=== PATIENT | female | born 1970 | race Caucasian/White ===

== ENCOUNTER 2017-02-06 16:42 | Inpatient (IN) | payer OTHER ==
[~2017-02-06 16:42] MED LIST: NACL 0.9% 1000 ML 1,000 ML IV ONE
[2017-02-06] MEDS ORDERED: NACL 0.9% 1000 ML 1,000 ML IV ONE ×2 (21:49→23:15)
--- NOTE | 2017-02-06 21:54 | Emergency Department Report ---
ED Shortness of Breath HPI - General Chief Complaint: Dyspnea/Respdistress Stated Complaint: SINUSITIS/LIAM Time Seen by Provider: 02/06/17 21:40 Source: patient Mode of arrival: Ambulatory Limitations: No Limitations - History of Present Illness Initial Comments: 46 yo female with no significant past medical history presents to the hospital with shortness breath, cough, and syncope. Patient is visiting from [place] and arrived to the [place] area one week ago. Yesterday she developed a dry cough that worsened today. Patient also has had shortness of breath since this afternoon. While in the bathroom here in the ED patient had a syncopal episode. This episode was associated with lightheadedness and sweating. Patient denies chest pain, fever, headache, nausea, vomiting, diarrhea, melena, hematochezia, or heavy vaginal bleeding. LMP 1 month ago. Patient denies calf tenderness or edema. Patient is noted to be tachycardic with initial pulse rate 155 - Related Data Home Medications Medication Instructions Recorded Confirmed Last Taken No Known Home Medications [No 02/06/17 02/06/17 Unknown Reported Home Medications] Allergies Allergy/AdvReac Type Severity Reaction Status Date / Time No Known Allergies Allergy Unverified 02/06/17 16:44 ED Review of Systems ROS: Stated complaint: SINUSITIS/LIAM Other details as noted in HPI Comment: All other systems reviewed and negative Other: Constitutional: No fevers chills Eyes: No eye pain visual changes ENT: No ear pain or throat pain Neck: Denies pain Respiratory: as per hpi Cardiovascular: as per hpi GI: Denies abdominal pain, nausea, vomiting : Denies dysuria Musculoskeletal: Denies back pain Skin: Denies rash, lesions, erythema Neurologic: Denies headache, numbness, weakness Psychiatric: Denies suicidal ideation, hallucinations ED Past Medical Hx - Past Medical History Previous Medical History?: No - Surgical History Past Surgical History?: No - Social History Smoking Status: Never Smoker Substance Use Type: None - Medications Home Medications: Home Medications Medication Instructions Recorded Confirmed Last Taken Type No Known Home Medications [No 02/06/17 02/06/17 Unknown History Reported Home Medications] ED Physical Exam - General Limitations: No Limitations - Other Other exam information: General: No limitations, patient is alert in no acute distress Head exam: Atraumatic, normocephalic Eyes exam: Normal appearance, pale conjunctiva ENT: Moist mucous membrane, normal oropharynx Neck exam: Normal inspection, full range of motion, no meningismus nontender Respiratory exam: Mild tachypnea, clear to auscultation Cardiovascular: Tachycardic regular rhythm Abdomen: Soft, nondistended, and nontender, with normal bowel sounds, no rebound, or guarding. Firm suprapubic area stomach suspect fibroid Extremity: Full range of motion normal inspection no deformity, no calf tenderness or edema Back: Normal Inspection, full range of motion, no tenderness Neurologic: Alert, oriented x3, cranial nerves intact, no motor or sensory deficit Psychiatric: normal affect, normal mood Skin: Warm, dry, intact ED Course Vital Signs 02/06/17 02/06/17 02/06/17 16:44 21:27 21:43 Temperature 98.5 F 99.2 F Pulse Rate 155 H 143 H 146 H Respiratory 22 22 30 H Rate Blood Pressure 114/87 Blood Pressure 104/71 [Right] O2 Sat by Pulse 93 94 Oximetry 02/06/17 02/06/17 02/06/17 21:45 22:01 22:15 Temperature Pulse Rate 148 H 137 H 147 H Respiratory 35 H 35 H 31 H Rate Blood Pressure 117/73 117/73 117/73 Blood Pressure [Right] O2 Sat by Pulse Oximetry 02/06/17 02/06/17 02/06/17 22:31 22:45 23:01 Temperature Pulse Rate 122 H 138 H 38 L Respiratory 44 H 13 18 Rate Blood Pressure 117/73 117/73 171/138 Blood Pressure [Right] O2 Sat by Pulse Oximetry 02/06/17 02/06/17 02/06/17 23:09 23:15 23:31 Temperature Pulse Rate 38 L 120 H 148 H Respiratory 14 102 H Rate Blood Pressure 171/138 142/87 158/127 Blood Pressure [Right] O2 Sat by Pulse Oximetry 02/06/17 02/07/17 02/07/17 23:45 00:00 00:15 Temperature Pulse Rate 67 97 H 101 H Respiratory 21 24 26 H Rate Blood Pressure 62/39 73/40 76/49 Blood Pressure [Right] O2 Sat by Pulse 100 Oximetry 02/07/17 02/07/17 02/07/17 00:30 00:45 01:00 Temperature Pulse Rate 105 H 110 H 112 H Respiratory 49 H 45 H 57 H Rate Blood Pressure 109/67 125/88 139/87 Blood Pressure [Right] O2 Sat by Pulse Oximetry 02/07/17 02/07/17 02/07/17 01:15 01:30 01:45 Temperature Pulse Rate 113 H 112 H 114 H Respiratory 60 H 63 H 34 H Rate Blood Pressure 137/88 144/67 134/80 Blood Pressure [Right] O2 Sat by Pulse Oximetry 02/07/17 02/07/17 02/07/17 02:00 02:51 03:00 Temperature Pulse Rate 112 H 112 H 112 H Respiratory 33 H 34 H 31 H Rate Blood Pressure 127/97 133/85 103/44 Blood Pressure [Right] O2 Sat by Pulse Oximetry 02/07/17 03:15 Temperature Pulse Rate 110 H Respiratory 31 H Rate Blood Pressure 75/39 Blood Pressure [Right] O2 Sat by Pulse Oximetry - Reevaluation(s) Reevaluation #1: 02/06/17 21:53 1 L normal saline bolus ordered Reevaluation #2: 02/07/17 Patient complained of worsening shortness of breath and repeat EKG at 22:14. This now shows persistent sinus tachycardia rate 145 with S1, Q3, T3 findings and right ventricular delay new compared to previous at 22:35 I went to room to reevaluate pt. she was cool and clammy feeling. Noticeably tachypnic. Patient states that she felt weak. Patient's saturation on supplemental oxygen remained above 90. Patient's heart rate began to decrease to less than 100. Patient became unresponsive twitching and staring episode followed by agonal respirations that progressed to apnea while I was at the bedside. Bag mask ventilations with supplemental oxygen initiated immediately. Patient continued to bradycardia down and became pulseless. Chest compressions were initiated as well as administration of epinephrine. At 22:43 first epinephrine was administered. Patient received a total of 4 epinephrine during resuscitation efforts. Patient was intubated during this time. Initial intubation was in the esophagus. Bougie was used to intubate the trachea and 7.5 ET tube placed with Seldinger technique. Positive audible breath sounds bilaterally with saturation in the 90s. Labs resulted during resuscitation efforts and show an elevation in d-dimer greater than 10,000. Decision to TPA the patient was made. TPA bolus of 10 mg was initiated at 23: 09 followed by 90 mg drip over 2 hours that was initiated at 23:10. EKG was repeated at 23:[address] elevation anteriorly, inferior Q waves, and lateral ST depressions. This was discussed with stemi french teacher Dr. Nicholas Stuart stoneworking belt sander. He agrees that symptoms likely secondary to PE and patient not a candidate for emergent catheterization at this time. Patient became pulseless again after initiation of TPA and had several episodes of pulseless bradycardia requiring multiple doses of epi with one episode of V. tach requiring defibrillation at 200 J. By 23:53 patient continued to have a palpable pulse with a narrow complex rhythm. Levophed was initiated for blood pressure support since systolic blood pressure dropped to the 70s and 80s. Case was D/w Dr Harmon stoneworking belt sander vascular regarding EKos and states if post TPA imaging reveals persistent high clot burden then ekos could be performed otherwise systemic TPA might be effective enough to dissolve the clot. Repeat EKG was performed at 12:31 AM and shows improvement in the ST elevations. Some persistent right bundle-branch block but the lateral ST depressions have improved. Also findings of S1, Q 3, and T3 have improved. 12:48 Patient is currently on Levophed at 15 mics with a pressure 125/88 and heart rate of 109 Pt also received 3L NS IV bolus. No urine output from melo Pt's friend Wil Pearce informed of patient's status and at the bedside at 12: 45. Apparently she is a Facebook friend of the patient and they just met for the first time when she came to [facility] last week. She states that she has tried to contact patient's daughter lives in [place] via what's michael. She has not yet heard a response. She also states that patient's plan was to visit a friend in [place] and she was awaiting them to send her either a plane or bus ticket. This finding does not know the family's name or have contact information for the family and [place]. 02/07/17 00:53 Reevaluation #3: 02/07/17 01:06 case d/w Hospitalist Dr Field. Will not admit pt until Ct angio is performed. Test ordered - Consultations Consultation #1: 02/06/17 24:14 EKG was repeated at 23:[address] elevation anteriorly, inferior Q waves, and lateral ST depressions. This was discussed with stemi french teacher Dr. Nicholas Stuart stoneworking belt sander. He agrees that symptoms likely secondary to PE and patient not a candidate for emergent catheterization at this time. Consultation #2: 02/07/17 00:04 Case was D/w Dr Harmon stoneworking belt sander vascular regarding EKos and states if post TPA imaging reveals persistent high clot burden the ekos could be performed otherwise systemic TPA might be effective enough to dissolve the clot. - Intubation Time Out Performed: Yes Sedative: none Laryngoscope: June Size: 4 Assist Device Used: Bougie ET Tube Size: 7 Tube Secured Depth (cm): 22 Tube Secured Location: lips Tube Placement Confirmation: visualized tube passing t, equal breath sounds bilat, no breath sounds over epi, confirmation by capnometr Patient Tolerated Procedure: well Intubation Complications: other (espohageal intubation initially. Immediately recognized. ET tube removed and reattempted using bougie with successful intubation) ED Medical Decision Making - Lab Data Result diagrams: 02/07/17 01:26 02/06/17 21:54 Lab Results 02/06/17 02/06/17 02/06/17 Range/Units 21:54 21:54 21:54 WBC 14.1 H (4.5-11.0) K/mm3 RBC 4.68 (3.65-5.03) M/mm3 Hgb 9.7 L (10.1-14.3) gm/dl Hct 32.7 (30.3-42.9) % MCV 70 L (79-97) fl MCH 21 L (28-32) pg MCHC 30 (30-34) % RDW 18.7 H (13.2-15.2) % PT (12.2-14.9) Sec. INR (0.87-1.13) APTT (24.2-36.6) Sec. D-Dimer (0-234) ng/mlDDU Sodium 136 L (137-145) mmol/L Potassium 3.8 (3.6-5.0) mmol/L Chloride 98.3 (98-107) mmol/L Carbon Dioxide 14 L (22-30) mmol/L Anion Gap 28 mmol/L BUN 11 (7-17) mg/dL Creatinine 1.1 (0.7-1.2) mg/dL Estimated GFR 53 ml/min BUN/Creatinine Ratio 10 % Glucose 193 H (65-100) mg/dL Lactic Acid 4.70 H* (0.7-2.0) mmol/L Calcium 8.8 (8.4-10.2) mg/dL Troponin T 0.057 H (0.00-0.029) ng/mL Triglycerides 121 (2-149) mg/dL Cholesterol 179 (50-199) mg/dL LDL Cholesterol Direct 94 (50-130) mg/dL HDL Cholesterol 61 H (40-59) mg/dL Cholesterol/HDL Ratio 2.93 % TSH (0.270-4.200) mlU/mL Free T4 (0.76-1.46) ng/dL HCG, Qual (Negative) Blood Type 02/06/17 02/06/17 02/06/17 Range/Units 21:54 21:54 21:54 WBC (4.5-11.0) K/mm3 RBC (3.65-5.03) M/mm3 Hgb (10.1-14.3) gm/dl Hct (30.3-42.9) % MCV (79-97) fl MCH (28-32) pg MCHC (30-34) % RDW (13.2-15.2) % PT (12.2-14.9) Sec. INR (0.87-1.13) APTT (24.2-36.6) Sec. D-Dimer > 30609 H (0-234) ng/mlDDU Sodium (137-145) mmol/L Potassium (3.6-5.0) mmol/L Chloride (98-107) mmol/L Carbon Dioxide (22-30) mmol/L Anion Gap mmol/L BUN (7-17) mg/dL Creatinine (0.7-1.2) mg/dL Estimated GFR ml/min BUN/Creatinine Ratio % Glucose (65-100) mg/dL Lactic Acid (0.7-2.0) mmol/L Calcium (8.4-10.2) mg/dL Troponin T (0.00-0.029) ng/mL Triglycerides (2-149) mg/dL Cholesterol (50-199) mg/dL LDL Cholesterol Direct (50-130) mg/dL HDL Cholesterol (40-59) mg/dL Cholesterol/HDL Ratio % TSH 5.770 H (0.270-4.200) mlU/mL Free T4 1.65 H (0.76-1.46) ng/dL HCG, Qual Negative (Negative) Blood Type 02/06/17 02/07/17 Range/Units 22:59 00:05 WBC (4.5-11.0) K/mm3 RBC (3.65-5.03) M/mm3 Hgb (10.1-14.3) gm/dl Hct (30.3-42.9) % MCV (79-97) fl MCH (28-32) pg MCHC (30-34) % RDW (13.2-15.2) % PT 14.8 (12.2-14.9) Sec. INR 1.10 (0.87-1.13) APTT 23.1 L (24.2-36.6) Sec. D-Dimer (0-234) ng/mlDDU Sodium (137-145) mmol/L Potassium (3.6-5.0) mmol/L Chloride (98-107) mmol/L Carbon Dioxide (22-30) mmol/L Anion Gap mmol/L BUN (7-17) mg/dL Creatinine (0.7-1.2) mg/dL Estimated GFR ml/min BUN/Creatinine Ratio % Glucose (65-100) mg/dL Lactic Acid (0.7-2.0) mmol/L Calcium (8.4-10.2) mg/dL Troponin T (0.00-0.029) ng/mL Triglycerides (2-149) mg/dL Cholesterol (50-199) mg/dL LDL Cholesterol Direct (50-130) mg/dL HDL Cholesterol (40-59) mg/dL Cholesterol/HDL Ratio % TSH (0.270-4.200) mlU/mL Free T4 (0.76-1.46) ng/dL HCG, Qual (Negative) Blood Type O POSITIVE - EKG Data -: EKG Interpreted by [facility] EKG shows normal: sinus rhythm, axis (14), QRS complexes (96), ST-T waves (no ST elevation T inversion) Rate: tachycardia (133) - EKG Data When compared to previous EKG there are: previous EKG unavailable 02/06/17 repeat EKG 22:14 shows sinus tach rate 145 now patient has S1, Q3, T3 and right ventricular delay. No STEMI. QRS axis 58, QRS duration 102 Repeat EKG 23:14 Sinus tach rate 121, QRS axis 83, QRS duration 140, nonspecific intraventricular delay, findings suggestive of posterior infarct given Q waves inferiorly. ST elevation anteriorly with lateral ST depression Repeat EKG status post TPA at 12:31 AM 02/07/2017 Sinus tach 106, right bundle branch block, improved inferior Q waves. No ST elevation NC - Radiology Data Radiology results: report reviewed (cxr: no acute process, mild cardiomegaly, ET 4 cm above the shaka) Chest x-ray: No acute pulmonary process. Mild cardiomegaly CT angiogram chest: Multiple bilateral pulmonary emboli involving the upper and lower lobar and segmental branches. This tiny nonocclusive embolus involving the distal left main pulmonary artery. Dilatation of the right lateral ventricle concerning for ventricular strain. Dense airspace consolidation of the lower lobes with small bilateral pleural effusions. There is of consolidation may reflect atelectasis, pneumonia, or pulmonary infarct. A mild to distal mid to distal esophagus appears to be fluid filled concerning for reflux. CT abdomen and pelvis IV contrast: Small amount of free fluid in the upper abdomen which may reflect nonspecific edema related to pulmonary findings and recent cardiac arrest. Presence of fluid limits evaluation of gallbladder wall thickening. No calcified gallstones or biliary dilatation. Slight heterogeneous pancreas which may be due to edematous changes. Prominent enlargement of the uterus with dominant fibroid. Mild distention of the mid to distal esophagus which is fluid filled and concerning for reflux. - Medical Decision Making Patient likely has a massive PE given her recent travel history, tachypnea, tachycardia, hypoxia, and rapid decompensation in the ED and absence of other known medical problems. EKG suggestive of right heart strain/PE as well Patient required an extensive period of resuscitation while TPA was being administered Patient is more stable but on a ventilator and a Levophed drip Hospitalist will not admit patient until CT angiogram is performed. Regardless patient needs ICU admission and continued support Note initial Plt value thought to be erroneous due to low volume in CBC tube. Repeat shows normal platelet level and significant leukocytosis likely secondary to status post cardiac - Differential Diagnosis PE, pneumonia, CHF, bronchitis, anemia, NC, angina, A. fib, a futter, thyro Critical Care Time: Yes Critical care time in (mins) excluding proc time.: 120 Critical care attestation.: If time is entered above; I have spent that time in minutes in the direct care of this critically ill patient, excluding procedure time. ED Disposition Clinical Impression: Acute massive pulmonary embolism, Cardiopulmonary arrest, Elevated troponin, Received intravenous tissue plasminogen activator (tPA) in emergency department Disposition: DC-09 OP ADMIT IP TO THIS HOSP Is pt being admited?: Yes Condition: Stable Time of Disposition: 00:56 (Dr Field/hosp)
[2017-02-06] MEDS ORDERED: ZOFRAN IV ONE (22:09)
[2017-02-06 22:22] LABS: Hematocrit 32.7 % (30.3-42.9); Hemoglobin 9.7 gm/dl (10.1-14.3); Mean Corpuscular HGB Conc 30 % (30-34); Mean Corpuscular Hemoglobin 21 pg (28-32); Mean Corpuscular Volume 70 fl (79-97); Red Blood Count 4.68 M/mm3 (3.65-5.03); Red Cell Distribution Width 18.7 % (13.2-15.2); White Blood Count 14.1 K/mm3 (4.5-11.0)
[2017-02-06 22:30] LABS: Calcium 8.8 mg/dL (8.4-10.2); Chloride 98.3 mmol/L (98-107); Potassium 3.8 mmol/L (3.6-5.0)
[2017-02-06] MEDS ORDERED: ACTIVASE ONE (22:57)
[2017-02-06] MEDS ORDERED: NACL 0.9% 250ML IV ONE (22:59)
[2017-02-06] MEDS ORDERED: ACTIVASE IV ONE (22:59)
[2017-02-06] MEDS ORDERED: SODIUM CHLORIDE FLUSH SYRINGE 10 ML IV NR ×2 (23:00)
--- NOTE | 2017-02-06 23:24 | XRay Report ---
FINAL REPORT PROCEDURE: XR CHEST 1V AP TECHNIQUE: Chest radiograph anteroposterior view. CPT 65548 HISTORY: sob, syncope.... ETT placement COMPARISON: No prior studies are available for comparison. FINDINGS: Heart: Mild cardiomegaly is noted. Mediastinum/Vessels: Normal. Lungs/Pleural space: Normal. Bony thorax: No acute osseous abnormality. Life support devices: Endotracheal tube is terminating about 4 centimeters above the shaka. IMPRESSION: No acute pulmonary process. Mild cardiomegaly.
[2017-02-06] MEDS ORDERED: LEVOPHED DRIP 4 MG/NS 250 ML 4 MG/250 ML BAG IV ONE (23:32)
[2017-02-06] MEDS: LEVOPHED DRIP 4 MG/NS 250 ML 4 MG/250 ML BAG IV SCH (23:55)
[2017-02-06 23:57] LABS: INR 1.1 (0.87-1.13); Partial Thromboplastin Time 23.1 Sec. (24.2-36.6)
[2017-02-07] MEDS ORDERED: NACL 0.9% 1000 ML 1,000 ML IV ONE ×3 (00:30→03:45)
[2017-02-07] MEDS ORDERED: NACL ONE (01:30)
[2017-02-07 01:32] LABS: Platelet Count 18 K/mm3 (140-440)
[2017-02-07 01:38] LABS: Hematocrit 33.7 % (30.3-42.9); Hemoglobin 9.1 gm/dl (10.1-14.3); Mean Corpuscular HGB Conc 27 % (30-34); Mean Corpuscular Hemoglobin 21 pg (28-32); Mean Corpuscular Volume 76 fl (79-97); Platelet Count 188 K/mm3 (140-440); Red Blood Count 4.43 M/mm3 (3.65-5.03); Red Cell Distribution Width 18.7 % (13.2-15.2)
[2017-02-07 02:04] LABS: Basophils % (Manual) 0 % (0.0-1.8); Blastocytes % (Manual) 0 %; Eosinophils % (Manual) 0 % (0.0-4.3)
[2017-02-07 02:05] LABS: Anisocytosis 1+; Platelet Estimate Consistent w Auto
[2017-02-07 02:06] LABS: Diff Status Complete
[2017-02-07 02:07] LABS: Anisocytosis 1+; Basophils % (Manual) 0 % (0.0-1.8); Blastocytes % (Manual) 0 %; Diff Status Complete; Eosinophils % (Manual) 0 % (0.0-4.3); Platelet Estimate Consistent w Auto
[2017-02-07] MEDS ORDERED: NACL 0.9% 1000 ML 1,000 ML ONE (02:10)
[2017-02-07] MEDS ORDERED: TYLENOL PO PRN (02:50)
[2017-02-07] MEDS ORDERED: ZOFRAN IV PRN (02:50)
--- NOTE | 2017-02-07 02:50 | History and Physical Report ---
History of Present Illness Date of examination: 02/07/17 History of present illness: 46-year-old woman with no medical problems who recently traveled from [place] came to emergency room for evaluation of shortness of breath that developed today. The friend at bedside stated that she has been complaining of a nonproductive cough since , and she felt as if her sinus was draining. She has been using home remedies without much improvement. While in the emergency room, she had a syncopal episode in the bathroom. The patient coded while she was back in her room, her EKG was reflective of a PE, she was given TPA and was coded for 1 hour. She is currently intubated, on Levophed drip. She has received 5 L of IV fluids, no urine output so far. Patient developed blood coming from her mouth during CAT scan .Review of system unobtainable. PAST MEDICAL HISTORY: None PAST SURGICAL HISTORY: Unknown FAMILY HISTORY: Unknown SOCIAL HISTORY: Unknown Medications and Allergies Allergies Allergy/AdvReac Type Severity Reaction Status Date / Time No Known Allergies Allergy Unverified 02/06/17 16:44 Home Medications Medication Instructions Recorded Confirmed Last Taken Type No Known Home Medications [No 02/06/17 02/06/17 Unknown History Reported Home Medications] Active Meds: Active Medications Sodium Chloride (Sodium Chloride Flush Syringe 10 Ml) 10 ml IV PRN NR Stop: 02/07/17 22:59 Sodium Chloride (Sodium Chloride Flush Syringe 10 Ml) 10 ml IV PRN NR Stop: 02/07/17 22:59 Exam - Physical Exam Narrative exam: Gen. appearance: Patient lying in bed, shallow breathing, intubated HEENT: Normocephalic/atraumatic, pupils equal round reactive to light, unable to do extra occular movement, no scleral icterus, no JVD or thyromegaly or nodule,, mucous membrane moist, unable to examine oral cavity Heart: S1-S2, regular rate and rhythm Lungs: Clear to auscultation anteriorly bilateral breathing comfortable Abdomen: Decreased bowel sounds,distended, no organomegaly Extremities: No edema, cyanosis, clubbing Neuro:: sedated Skin: No rash, nodules, warm dry - Constitutional Vitals: Temp Pulse Resp BP Pulse Ox 99.2 F 112 H 33 H 127/97 100 02/06/17 21:27 02/07/17 02:00 02/07/17 02:00 02/07/17 02:00 02/07/17 00:15 Results - Labs CBC & Chem 7: 02/07/17 09:00 02/07/17 05:00 Labs: Abnormal lab results 02/06/17 02/06/17 02/06/17 Range/Units 21:54 21:54 21:54 WBC 14.1 H (4.5-11.0) K/mm3 Hgb 9.7 L (10.1-14.3) gm/dl MCV 70 L (79-97) fl MCH 21 L (28-32) pg MCHC (30-34) % RDW 18.7 H (13.2-15.2) % Plt Count 18 L* (140-440) K/mm3 Lymphocytes % (Manual) 38.0 H (13.4-35.0) % Seg Neutrophils # Man 7.9 H (1.8-7.7) K/mm3 Lymphocytes # (Manual) (1.2-5.4) K/mm3 Monocytes # (Manual) (0.0-0.8) K/mm3 APTT (24.2-36.6) Sec. D-Dimer (0-234) ng/mlDDU Sodium 136 L (137-145) mmol/L Carbon Dioxide 14 L (22-30) mmol/L Glucose 193 H (65-100) mg/dL Lactic Acid 4.70 H* (0.7-2.0) mmol/L Troponin T 0.057 H (0.00-0.029) ng/mL HDL Cholesterol 61 H (40-59) mg/dL TSH (0.270-4.200) mlU/mL Free T4 (0.76-1.46) ng/dL 02/06/17 02/06/17 02/06/17 Range/Units 21:54 21:54 22:59 WBC (4.5-11.0) K/mm3 Hgb (10.1-14.3) gm/dl MCV (79-97) fl MCH (28-32) pg MCHC (30-34) % RDW (13.2-15.2) % Plt Count (140-440) K/mm3 Lymphocytes % (Manual) (13.4-35.0) % Seg Neutrophils # Man (1.8-7.7) K/mm3 Lymphocytes # (Manual) (1.2-5.4) K/mm3 Monocytes # (Manual) (0.0-0.8) K/mm3 APTT 23.1 L (24.2-36.6) Sec. D-Dimer > 08855 H (0-234) ng/mlDDU Sodium (137-145) mmol/L Carbon Dioxide (22-30) mmol/L Glucose (65-100) mg/dL Lactic Acid (0.7-2.0) mmol/L Troponin T (0.00-0.029) ng/mL HDL Cholesterol (40-59) mg/dL TSH 5.770 H (0.270-4.200) mlU/mL Free T4 1.65 H (0.76-1.46) ng/dL 02/07/17 02/07/17 Range/Units 00:20 01:26 WBC 30.0 H (4.5-11.0) K/mm3 Hgb 9.1 L (10.1-14.3) gm/dl MCV 76 L (79-97) fl MCH 21 L (28-32) pg MCHC 27 L (30-34) % RDW 18.7 H (13.2-15.2) % Plt Count (140-440) K/mm3 Lymphocytes % (Manual) 36.0 H (13.4-35.0) % Seg Neutrophils # Man 18.0 H (1.8-7.7) K/mm3 Lymphocytes # (Manual) 10.8 H (1.2-5.4) K/mm3 Monocytes # (Manual) 1.2 H (0.0-0.8) K/mm3 APTT (24.2-36.6) Sec. D-Dimer (0-234) ng/mlDDU Sodium (137-145) mmol/L Carbon Dioxide (22-30) mmol/L Glucose (65-100) mg/dL Lactic Acid (0.7-2.0) mmol/L Troponin T 0.309 H* D (0.00-0.029) ng/mL HDL Cholesterol (40-59) mg/dL TSH (0.270-4.200) mlU/mL Free T4 (0.76-1.46) ng/dL - Imaging and Cardiology CT scan - chest: report reviewed Assessment and Plan Assessment Cardiac arrest Acute respiratory Multiple pulmonary emboli, s/p TPA Hypotension most likely from pulmonary emboli Possible Pneumonia Plan Admit to medicine vascular and cardiology consulted to see the patient Consult critical care, case discussed with Dr. Rangel Continue levophed drip, Continue IV fluid start IV vancomycin, Zosyn check doppler of the lower extremities, ct abdomen Prognosis guarded d/w friend, David, her phone number is [phone] D/w daughter, Arelike at [phone] cc 45 minutes Addendum CODE BLUE called on patient She was given 3 rounds of epi with ROSC Patient's friend, Mrs. Hernandez was notified Patient coded 2 more times, please refer to the code sheet for details second code : Bicarbonate given,D50 given, blood sugar less than 20 Start vasopressin drip
[2017-02-07] MEDS ORDERED: ZOSYN/NS 4.5GM/100ML 4.5 GM/100 ML VIAL IV SCH (03:00)
[2017-02-07] MEDS ORDERED: NACL 0.9% 1000 ML 1,000 ML IV SCH (03:00)
--- NOTE | 2017-02-07 03:16 | Cat Scan Report ---
FINAL REPORT EXAM: CT ANGIO CHEST HISTORY: sob, elevated ddimer, s/p cardiac arrest COMPARISON: Chest x-ray from February 06, 2017. TECHNIQUE: Contiguous axial images were obtained. Additional sagittal and coronal reformatted images were obtained. Administration of IV contrast given per institution protocol. Images submitted for interpretation. Max intensity projection images. 100 cc Omnipaque 350. FINDINGS: Heart mildly enlarged. Thoracic aorta normal in caliber. No dissection. Right ventricle measures 6 millimeters in diameter and the left ventricle 4.6 centimeters. Nonocclusive thrombus within the proximal aspect of the right lower lobar artery and thrombus within the right upper lobe lobar artery and segmental branches. Nonocclusive thrombus within the distal left main pulmonary artery and proximal left lower lobar artery occlusive thrombus within segmental branches of the left upper lobe. Small airspace consolidations at the medial margins of the lower lobes with associated volume loss. Trace bilateral pleural effusions. No obstructive lesion centrally within the tracheobronchial tree. No pneumothorax or pneumomediastinum. ETT is present. Distal tip terminates above the shaka. Mid to distal esophagus appears to be fluid-filled concerning for reflux. Fatty infiltration of the liver. Liver is borderline enlarged. [id number] degenerative changes of the thoracic spine. IMPRESSION: Multiple bilateral pulmonary emboli involving upper and lower lobar and segmental branches. There is a tiny nonocclusive embolus involving the distal left main pulmonary artery. Dilatation of the right lateral ventricle concerning for ventricular strain. Dense airspace consolidations of the lower lobes with small bilateral pleural effusions. Areas of consolidation may reflect atelectasis, pneumonia or pulmonary infarct. Mid to distal esophagus appears to be fluid-filled concerning for reflux.
--- NOTE | 2017-02-07 03:25 | Cat Scan Report ---
FINAL REPORT EXAM: CT ABDOMEN PELVIS W CON HISTORY: distended COMPARISON: CT of the chest from the same date.. TECHNIQUE: Contiguous axial images were obtained. Additional sagittal and coronal reformatted images were obtained. Administration of IV contrast given per institution protocol. Images submitted for interpretation. 100 cc Omnipaque [id number]. FINDINGS: Exam is somewhat limited by patient respiratory motion as well as arm positioning along the abdominal wall. Please see CT of the chest from the same day for further details of the lung bases. Mild distention the stomach. There is mild distention the mid to distal esophagus which is fluid-filled concerning for reflux. No obstructive lesion identified along the distal stomach or duodenum. This may be a transient finding. Mild diffuse fatty infiltration of the liver. Liver measures 21 centimeters, upper limits of normal. Trace fluid at the margin of the liver. Diffuse gallbladder wall thickening which may be reactive secondary to perihepatic ascites. No calcified gallstones are gross biliary dilatation by CT. Trace fluid at the margin the spleen and pancreas. No focal enhancing pancreatic lesion. Mild pancreatitis is not excluded. Nodular thickening of the adrenal glands. 5 millimeter superior left renal cyst. No solid renal lesion or hydronephrosis. Aorta and IVC normal in caliber. Man catheter decompresses the urinary bladder. Enlargement of the uterus which appears to nuclear placed by fibroid. Uterus measures 18 x 15 by 17 centimeters. Ovaries are small in size. No loculated collection or free air. No bowel obstruction. Large and small bowel loops normal in caliber. The appendix is normal in caliber measuring 5-6 millimeters in diameter. Bony pelvis and lumbar spine are grossly intact. IMPRESSION: Small amount of free fluid in the upper abdomen which may reflect nonspecific edema related patient's pulmonary findings and recent cardiac arrest. Presence of fluid limits evaluation of gallbladder wall thickening. No calcified gallstones or biliary dilatation. Slight heterogeneity of the pancreas which may relate to edematous changes in the upper abdomen. Correlation with amylase lipase suggested to ensure no active pancreatitis. Mild distention the stomach. There is mild distention the mid to distal esophagus which is fluid-filled concerning for reflux. No obstructive lesion identified along the distal stomach or duodenum. This may be a transient finding. Prominent enlargement of the uterus with probable dominant fibroid. No other acute findings.
[2017-02-07 03:43] LABS: Creatine Kinase MB 45.4 ng/mL (0.0-4.0)
[2017-02-07 03:43] LABS: Mean Corpuscular HGB Conc 28 % (30-34); Mean Corpuscular Volume 77 fl (79-97); Red Blood Count 4.24 M/mm3 (3.65-5.03)
[2017-02-07 03:49] LABS: Hematocrit 32.5 % (30.3-42.9); White Blood Count 28.5 K/mm3 (4.5-11.0)
[2017-02-07 03:50] LABS: Mean Corpuscular Hemoglobin 21 pg (28-32); Platelet Count 240 K/mm3 (140-440)
[2017-02-07] MEDS: LEVOPHED DRIP 4 MG/NS 250 ML 4 MG/250 ML BAG IV SCH ×3 (03:50→10:04)
[2017-02-07] MEDS ORDERED: VANCOMYCIN/NS 1 GM/250 ML 1 GM/250 ML BAG IV ONE (03:50)
[2017-02-07] MEDS ORDERED: LEVOPHED DRIP 4 MG/NS 250 ML 4 MG/250 ML BAG IV ONE (03:55)
[2017-02-07 04:30] LABS: Anisocytosis 1+; Basophils % (Manual) 0 % (0.0-1.8); Blastocytes % (Manual) 0 %; Eosinophils % (Manual) 0.5 % (0.0-4.3)
[2017-02-07 04:31] LABS: Diff Status Complete; Hypochromasia Few; Platelet Estimate Consistent w Auto
[2017-02-07 05:35] LABS: Albumin 3.1 g/dL (3.9-5); Bilirubin,Total 0.7 mg/dL (0.1-1.2); Calcium 7.9 mg/dL (8.4-10.2); Chloride 100.6 mmol/L (98-107); Potassium 5.3 mmol/L (3.6-5.0); Total Protein 6.2 g/dL (6.3-8.2)
[2017-02-07 06:31] LABS: ISTAT Base Excess -26; ISTAT HCO3 9.2; ISTAT PCO2 61.1 (35-45); ISTAT PH 6.784 (7.35-7.45); ISTAT PO2 74 (80-105); ISTAT SO2 74; ISTAT TCO2 11
[2017-02-07] MEDS ORDERED: SODIUM BICARBONATE IV ONE ×3 (06:34→06:37)
[2017-02-07] MEDS ORDERED: D50W (25GM) Syringe IV ONE (06:52)
[2017-02-07] MEDS ORDERED: ZOSYN/NS 2.25 GM/50ML 2.25 GM/50 ML BAG IV SCH ×2 (07:00→11:00)
[2017-02-07] MEDS ORDERED: Vasostrict 20 UNIT in NACL 0.9% 100 ML IV SCH (07:00)
[2017-02-07] MEDS ORDERED: D50W (25GM) Syringe IV PRN (08:00)
--- NOTE | 2017-02-07 09:01 | Consultation ---
History of Present Illness - Reason for Consult Consult date: 02/07/17 - History of Present Illness 46 year old female who presented with SOB to the yesterday. In summary, she experienced syncope and ultimately coded. EKG changes showed evidence of right heart strain, along with elevated cardiac biomarkers. With a high clinical suspicion of PE, a systemic tPA bolus was administered. She unfortunately coded 3 more times afterwards. CTA was eventually performed, which showed no evidence of central or main PE, but there were several segmental PEs. Currently she is in the unit on multiple pressors. Medications and Allergies Allergies Allergy/AdvReac Type Severity Reaction Status Date / Time No Known Allergies Allergy Unverified 02/06/17 16:44 Home Medications Medication Instructions Recorded Confirmed Last Taken Type No Known Home Medications [No 02/06/17 02/06/17 Unknown History Reported Home Medications] Active Meds: Active Medications Acetaminophen (Tylenol) 650 mg PO Q4H PRN PRN Reason: Pain MILD(1-3)/Fever >100.5/VACA Dextrose (D50w (25gm) Syringe) 50 ml IV PRN PRN PRN Reason: Hypoglycemia Norepinephrine (Levophed Drip 4 Mg/Ns 250 Ml) 4 mg in 250 mls @ 7.5 mls/hr IV TITR MAYELIN; 2 MCG/MIN PRN Reason: Protocol Last Admin: 02/07/17 06:44 Dose: 30 mcg/min, 112.5 mls/hr Sodium Chloride (Nacl 0.9% 1000 Ml) 1,000 mls @ 150 mls/hr IV DIRECT MAYELIN Last Admin: 02/07/17 05:57 Dose: 150 mls/hr Vasopressin 20 unit/ Sodium (Chloride) 101 mls @ 9.09 mls/hr IV TITR MAYELIN; 0.03 UNITS/MIN PRN Reason: Protocol Piperacillin Sod/Tazobactam Sod (Zosyn/Ns 2.25 Gm/50ml) 2.25 gm in 50 mls @ 100 mls/hr IV Q8H MAYELIN Ondansetron HCl (Zofran) 4 mg IV Q8H PRN PRN Reason: N/V unrelieved by Adriana Sodium Chloride (Sodium Chloride Flush Syringe 10 Ml) 10 ml IV PRN NR Stop: 02/07/17 22:59 Sodium Chloride (Sodium Chloride Flush Syringe 10 Ml) 10 ml IV PRN NR Stop: 02/07/17 22:59 Exam - Constitutional Vitals: Temp Pulse Resp BP Pulse Ox 99.2 F 124 H 29 H 100/51 93 02/06/17 21:27 02/07/17 07:40 02/07/17 07:40 02/07/17 07:40 02/07/17 07:40 General appearance: Present: other (intubated) - EENT Eyes: Present: PERRL Results - Labs CBC & Chem 7: 02/07/17 03:26 02/07/17 05:00 Labs: Abnormal lab results 02/06/17 02/06/17 02/06/17 Range/Units 21:54 21:54 21:54 WBC 14.1 H (4.5-11.0) K/mm3 Hgb 9.7 L (10.1-14.3) gm/dl MCV 70 L (79-97) fl MCH 21 L (28-32) pg MCHC (30-34) % RDW 18.7 H (13.2-15.2) % Plt Count 18 L* (140-440) K/mm3 Seg Neuts % (Manual) (40.0-70.0) % Lymphocytes % (Manual) 38.0 H (13.4-35.0) % Nucleated RBC % (0.0-0.9) % Seg Neutrophils # Man 7.9 H (1.8-7.7) K/mm3 Lymphocytes # (Manual) (1.2-5.4) K/mm3 Monocytes # (Manual) (0.0-0.8) K/mm3 APTT (24.2-36.6) Sec. D-Dimer (0-234) ng/mlDDU POC ABG pH (7.35-7.45) POC ABG pCO2 (35-45) POC ABG pO2 (80-105) Sodium 136 L (137-145) mmol/L Potassium (3.6-5.0) mmol/L Carbon Dioxide 14 L (22-30) mmol/L Creatinine (0.7-1.2) mg/dL Glucose 193 H (65-100) mg/dL POC Glucose (70-105) Lactic Acid 4.70 H* (0.7-2.0) mmol/L Calcium (8.4-10.2) mg/dL AST (5-40) units/L ALT (7-56) units/L Alkaline Phosphatase (35-129) units/L Total Creatine Kinase (30-135) units/L CK-MB (CK-2) (0.0-4.0) ng/mL Troponin T 0.057 H (0.00-0.029) ng/mL Total Protein (6.3-8.2) g/dL Albumin (3.9-5) g/dL HDL Cholesterol 61 H (40-59) mg/dL TSH (0.270-4.200) mlU/mL Free T4 (0.76-1.46) ng/dL 02/06/17 02/06/17 02/06/17 Range/Units 21:54 21:54 22:59 WBC (4.5-11.0) K/mm3 Hgb (10.1-14.3) gm/dl MCV (79-97) fl MCH (28-32) pg MCHC (30-34) % RDW (13.2-15.2) % Plt Count (140-440) K/mm3 Seg Neuts % (Manual) (40.0-70.0) % Lymphocytes % (Manual) (13.4-35.0) % Nucleated RBC % (0.0-0.9) % Seg Neutrophils # Man (1.8-7.7) K/mm3 Lymphocytes # (Manual) (1.2-5.4) K/mm3 Monocytes # (Manual) (0.0-0.8) K/mm3 APTT 23.1 L (24.2-36.6) Sec. D-Dimer > 11858 H (0-234) ng/mlDDU POC ABG pH (7.35-7.45) POC ABG pCO2 (35-45) POC ABG pO2 (80-105) Sodium (137-145) mmol/L Potassium (3.6-5.0) mmol/L Carbon Dioxide (22-30) mmol/L Creatinine (0.7-1.2) mg/dL Glucose (65-100) mg/dL POC Glucose (70-105) Lactic Acid (0.7-2.0) mmol/L Calcium (8.4-10.2) mg/dL AST (5-40) units/L ALT (7-56) units/L Alkaline Phosphatase (35-129) units/L Total Creatine Kinase (30-135) units/L CK-MB (CK-2) (0.0-4.0) ng/mL Troponin T (0.00-0.029) ng/mL Total Protein (6.3-8.2) g/dL Albumin (3.9-5) g/dL HDL Cholesterol (40-59) mg/dL TSH 5.770 H (0.270-4.200) mlU/mL Free T4 1.65 H (0.76-1.46) ng/dL 02/07/17 02/07/17 02/07/17 Range/Units 00:20 01:26 03:02 WBC 30.0 H (4.5-11.0) K/mm3 Hgb 9.1 L (10.1-14.3) gm/dl MCV 76 L (79-97) fl MCH 21 L (28-32) pg MCHC 27 L (30-34) % RDW 18.7 H (13.2-15.2) % Plt Count (140-440) K/mm3 Seg Neuts % (Manual) (40.0-70.0) % Lymphocytes % (Manual) 36.0 H (13.4-35.0) % Nucleated RBC % (0.0-0.9) % Seg Neutrophils # Man 18.0 H (1.8-7.7) K/mm3 Lymphocytes # (Manual) 10.8 H (1.2-5.4) K/mm3 Monocytes # (Manual) 1.2 H (0.0-0.8) K/mm3 APTT (24.2-36.6) Sec. D-Dimer (0-234) ng/mlDDU POC ABG pH (7.35-7.45) POC ABG pCO2 (35-45) POC ABG pO2 (80-105) Sodium (137-145) mmol/L Potassium (3.6-5.0) mmol/L Carbon Dioxide (22-30) mmol/L Creatinine (0.7-1.2) mg/dL Glucose (65-100) mg/dL POC Glucose (70-105) Lactic Acid (0.7-2.0) mmol/L Calcium (8.4-10.2) mg/dL AST (5-40) units/L ALT (7-56) units/L Alkaline Phosphatase (35-129) units/L Total Creatine Kinase 3922 H (30-135) units/L CK-MB (CK-2) 45.4 H (0.0-4.0) ng/mL Troponin T 0.309 H* D 0.879 H* D (0.00-0.029) ng/mL Total Protein (6.3-8.2) g/dL Albumin (3.9-5) g/dL HDL Cholesterol (40-59) mg/dL TSH (0.270-4.200) mlU/mL Free T4 (0.76-1.46) ng/dL 02/07/17 02/07/17 02/07/17 Range/Units 03:26 05:00 06:18 WBC 28.5 H (4.5-11.0) K/mm3 Hgb 9.0 L (10.1-14.3) gm/dl MCV 77 L (79-97) fl MCH 21 L (28-32) pg MCHC 28 L (30-34) % RDW 19.0 H (13.2-15.2) % Plt Count (140-440) K/mm3 Seg Neuts % (Manual) 73.5 H (40.0-70.0) % Lymphocytes % (Manual) (13.4-35.0) % Nucleated RBC % 1.0 H (0.0-0.9) % Seg Neutrophils # Man 20.9 H (1.8-7.7) K/mm3 Lymphocytes # (Manual) 6.6 H (1.2-5.4) K/mm3 Monocytes # (Manual) (0.0-0.8) K/mm3 APTT (24.2-36.6) Sec. D-Dimer (0-234) ng/mlDDU POC ABG pH 6.784 L (7.35-7.45) POC ABG pCO2 61.1 H (35-45) POC ABG pO2 74 L (80-105) Sodium (137-145) mmol/L Potassium 5.3 H D (3.6-5.0) mmol/L Carbon Dioxide 12 L (22-30) mmol/L Creatinine 1.7 H D (0.7-1.2) mg/dL Glucose 42 L (65-100) mg/dL POC Glucose (70-105) Lactic Acid (0.7-2.0) mmol/L Calcium 7.9 L (8.4-10.2) mg/dL AST 2216 H (5-40) units/L ALT 1753 H (7-56) units/L Alkaline Phosphatase 163 H (35-129) units/L Total Creatine Kinase (30-135) units/L CK-MB (CK-2) (0.0-4.0) ng/mL Troponin T (0.00-0.029) ng/mL Total Protein 6.2 L (6.3-8.2) g/dL Albumin 3.1 L (3.9-5) g/dL HDL Cholesterol (40-59) mg/dL TSH (0.270-4.200) mlU/mL Free T4 (0.76-1.46) ng/dL 02/07/17 02/07/17 Range/Units 06:33 06:53 WBC (4.5-11.0) K/mm3 Hgb (10.1-14.3) gm/dl MCV (79-97) fl MCH (28-32) pg MCHC (30-34) % RDW (13.2-15.2) % Plt Count (140-440) K/mm3 Seg Neuts % (Manual) (40.0-70.0) % Lymphocytes % (Manual) (13.4-35.0) % Nucleated RBC % (0.0-0.9) % Seg Neutrophils # Man (1.8-7.7) K/mm3 Lymphocytes # (Manual) (1.2-5.4) K/mm3 Monocytes # (Manual) (0.0-0.8) K/mm3 APTT (24.2-36.6) Sec. D-Dimer (0-234) ng/mlDDU POC ABG pH (7.35-7.45) POC ABG pCO2 (35-45) POC ABG pO2 (80-105) Sodium (137-145) mmol/L Potassium (3.6-5.0) mmol/L Carbon Dioxide (22-30) mmol/L Creatinine (0.7-1.2) mg/dL Glucose (65-100) mg/dL POC Glucose < 40 L 66 L (70-105) Lactic Acid (0.7-2.0) mmol/L Calcium (8.4-10.2) mg/dL AST (5-40) units/L ALT (7-56) units/L Alkaline Phosphatase (35-129) units/L Total Creatine Kinase (30-135) units/L CK-MB (CK-2) (0.0-4.0) ng/mL Troponin T (0.00-0.029) ng/mL Total Protein (6.3-8.2) g/dL Albumin (3.9-5) g/dL HDL Cholesterol (40-59) mg/dL TSH (0.270-4.200) mlU/mL Free T4 (0.76-1.46) ng/dL - Imaging and Cardiology CT scan - abdomen: report reviewed, image reviewed CT scan - chest: report reviewed, image reviewed Assessment and Plan This is a 46 year old female seen in consult for possible catheter directed thrombolysis of a PE. She is not a candidate for Ekos catheter placement at this time. While EKG and lab values show evidence of right heart strain, there is no evidence of massive PE on CT. This may be because the patient was given systemic thrombolysis prior to the CT. In any case, she is currently intubated and unresponsive without any sedation. Additionally, she is tachycardic and hypotensive with multiple pressors. She coded again during the typing of this note. The prognosis at this time is extremely poor, and there would be no added benefit for catheter directed intervention at this time.
[2017-02-07] MEDS ORDERED: ADRENALIN ONE (09:05)
[2017-02-07] MEDS ORDERED: PROVENTIL IH ONE (09:05)
[2017-02-07] MEDS ORDERED: ATROPINE 0.1% (CARDIAC) ONE (09:05)
[2017-02-07] MEDS ORDERED: D50W (25GM) Vial IV ONE (09:05)
[2017-02-07] MEDS ORDERED: LASIX ONE (09:05)
[2017-02-07 09:42] LABS: Hematocrit 27.7 % (30.3-42.9); Hemoglobin 7.6 gm/dl (10.1-14.3)
[2017-02-07 10:59] VITALS: BP 222/98
[2017-02-07] MEDS ORDERED: SODIUM BICARBONATE 150 MEQ in D5W 1,000 ML IV SCH (11:00)
--- NOTE | 2017-02-07 11:31 | Event Note ---
Date: 02/07/17 Went in room to evaluate patient. Asytolic. Patient maxed on 2 pressors, anoxic. Not on any sedation. Has coded at least 6x since admission. Family not present as they are in [place]. Time of documented at 11:09
--- NOTE | 2017-02-07 17:20 | Death Summary ---
Summary - Providers Date of service: 02/07/17 Consults: 02/07/17 00:01 Consult to Physician [CONS] Urgent Consulting Provider: YESSICA CRUZ Reason For Exam: st elevation, possible pe, card arrest Place consult to:: Dr. Raj. Cruz Notified:: his number Phone number called:: his number Was contact made?: Yes If yes, spoke with:: Dr. Raj. Cruz Time called:: 23:19 Comment:: Dr. Segura (er dr) spoke with Dr. Raj. Cruz 02/07/17 00:07 Consult to Physician [CONS] Urgent Consulting Provider: SARAH ALEGRE Reason For Exam: Probable massive PE, s/p arrest Place consult to:: Dr. Liu Notified:: Answering Service Phone number called:: [phone] Was contact made?: Yes If yes, spoke with:: Dr. Liu Time called:: 12:08 Comment:: Dr. Segura (er dr) spoke with Dr. Liu 02/07/17 10:07 Consult to Physician [CONS] Routine Consulting Provider: PAIGE SOLER Reason For Exam: coded multiple times Place consult to:: Assess for brain Attending: MATILDE COLLADO MD - summary Date of admission: 02/07/17 02:50 Date of : 02/07/17 Reason for admission: massive DVT, S/P cardiac arrest, coded multiple times Significant findings: 46-year-old woman with no medical problems who recently traveled from [place] came to emergency room for evaluation of shortness of breath that developed today. The friend at bedside stated that she has been complaining of a nonproductive cough since , and she felt as if her sinus was draining. She has been using home remedies without much improvement. While in the emergency room, she had a syncopal episode in the bathroom. The patient coded while she was back in her room, her EKG was reflective of a PE, she was given TPA and was coded for 1 hour. She wasintubated, on Levophed drip. She has received 5 L of IV fluids, no urine output. Patient developed blood coming from her mouth during CAT scan .Review of system unobtainable. Patient was admitted to the ICU and she was quoted a total of 6 times. She was treated with pressors, IV antibiotics, mechanical ventilation. I have contacted her daughter in [place], Milagro Banegas @[phone] and she wants everything to be done. I have consulted vascular surgery recommended again is doing any procedure on her because she was not a candidate for any vascular procedure. Despite [facility] patient around 11 AM and I have called the daughter and told her that her mother expires. Procedures/treatments rendered: As stated in the significant findings. Pertinent studies: CTA - Multiple bilateral pulmonary emboli involving upper and lower lobar and segmental branches. There is a tiny nonocclusive embolus involving the distal left main pulmonary artery. Dilatation of the right lateral ventricle concerning for ventricular strain. Dense consolidations of the lower lobes with small bilateral pleural effusions. Bilateral Doppler ultrasound -Evidence of acute DVT in the left distal iliac vein extending to the left common femoral vein. - Final diagnosis (1) PEA (Pulseless electrical activity) Note: Final diagnosis: (2) Shock circulatory Note: Final diagnosis: (3) Acute respiratory failure with hypoxia Note: Final diagnosis: (4) Acute massive pulmonary embolism Note: Final diagnosis: (5) Cardiopulmonary arrest Note: Final diagnosis: (6) Elevated troponin Note: Final diagnosis: (7) Received intravenous tissue plasminogen activator (tPA) in emergency department Note: Final diagnosis:
--- NOTE | 2017-02-09 14:35 | Vascular Lab Report ---
LOWER EXTREMITY VENOUS DUPLEX: REASON FOR EXAM: Deep venous thrombosis status post cardiac arrest with pulmonary embolism. COMMENTS ON THE RIGHT: All veins visualized are freely compressible without evidence of internal echogenicity. Flow is spontaneous and phasic throughout. COMMENTS ON THE LEFT: Acute deep venous thrombus in the left distal iliac vein with extension into the common femoral vein and superficial extension into the proximal greater saphenous vein. No thrombus in the left femoral vein. The remaining veins visualized are freely compressible without evidence of internal echogenicity. Spontaneous and phasic flow is absent proximally. IMPRESSION: Acute left proximal deep venous thrombus with superficial extension into the greater saphenous vein.
== END 2017-02-07 16:00 | DRG 208 ==
LOC: ED 16:42 → CC1 02-07 02:50 → UNDOADMIN 02-07 03:07 → CC1 02-07 03:07
PROVIDERS: ADMIT Internal Medicine; ATTEND Internal Medicine
PROC: 3E04317 Introduction of Other Thrombolytic into Central Vein, Percutaneous Approach (ICD-10-PCS; principal; 2017-02-07)
PROC: 5A1935Z Respiratory Ventilation, Less than 24 Consecutive Hours (ICD-10-PCS; 2017-02-07)
PROC: 0BH17EZ Insertion of Endotracheal Airway into Trachea, Via Natural or Artificial Opening (ICD-10-PCS; 2017-02-07)
DX: I26.99 Other pulmonary embolism without acute cor pulmonale (principal); J96.01 Acute respiratory failure with hypoxia; I46.9 Cardiac arrest, cause unspecified; I95.9 Hypotension, unspecified
CPT/HCPCS: 36415; 36600; 71010; 71275; 74177; 80048; 80053; 80061; 82140; 82550; 82553; 82803; 82962; 84439; 84443; 84484; 84703; 85007; 85014; 85018; 85025; 85379; 85610; 85730; 86850; 86900; 86901; 87070; 87205; 87400; 93005; 93010; 93970; 94002; 96374; 96375; 99291; 99292; J0171; J0461; J1940; J2405; J2543; J2997; J3370; J7030; J7070; Q9967